=== PATIENT | female | born 1955 | race African-American/Black ===

== ENCOUNTER 2017-02-19 15:52 | Emergency (ER) | payer MEDICAID ==
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
[2017-02-19 16:58] VITALS: BP 156/88
== END 2017-02-19 16:45 | disposition home or self-care (01) ==
LOC: ER 15:52
DX: J06.9 Acute upper respiratory infection, unspecified (principal); R05 Cough; Z87.891 Personal history of nicotine dependence
CPT/HCPCS: 99283

== ENCOUNTER 2017-03-23 17:25 | Emergency (ER) | payer MEDICAID ==
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
[2017-03-23] MEDS ORDERED: HYDROCODONE/ACETAMINOPHEN 5-325 MG 6 TAB/DSPK PO PRN (19:43)
[2017-03-23 20:20] VITALS: BP 148/84
== END 2017-03-23 20:18 | disposition home or self-care (01) ==
LOC: ER 17:25
DX: S89.92XA Unspecified injury of left lower leg, initial encounter (principal); M25.562 Pain in left knee; M79.89 Other specified soft tissue disorders; G89.29 Other chronic pain; W19.XXXA Unspecified fall, initial encounter; Z87.891 Personal history of nicotine dependence
CPT/HCPCS: 99283

== ENCOUNTER 2017-05-01 09:57 | Emergency (ER) | payer MEDICAID ==
[2017-05-01 10:13] VITALS: BP 107/66
--- NOTE | 2017-05-01 12:00 | RADIOLOGY REPORT (SQ) ---
EXAM DESCRIPTION: FOOT LEFT COMPLETE COMPLETED DATE/TIME: 05/01/2017 11:49 am REASON FOR STUDY: pain and swelling COMPARISON: None. NUMBER OF VIEWS: Three views. TECHNIQUE: AP, lateral and oblique radiographic images acquired of the left foot. LIMITATIONS: None. FINDINGS: MINERALIZATION: Osteopenia. BONES: No acute fracture or dislocation. No worrisome bone lesions. JOINTS: No effusions. SOFT TISSUES: No soft tissue swelling. No foreign body. OTHER: No other significant finding. IMPRESSION: NEGATIVE STUDY OF THE LEFT FOOT. NO RADIOGRAPHIC EVIDENCE OF ACUTE INJURY. TECHNICAL DOCUMENTATION: JOB ID: [id number] [email or web address]- All Rights Reserved
--- NOTE | 2017-05-01 12:01 | RADIOLOGY REPORT (SQ) ---
EXAM DESCRIPTION: ANKLE LEFT COMPLETE COMPLETED DATE/TIME: 05/01/2017 11:49 am REASON FOR STUDY: pain and swelling COMPARISON: None. NUMBER OF VIEWS: Three views. TECHNIQUE: AP, lateral, and oblique radiographic images acquired of the left ankle. LIMITATIONS: None. FINDINGS: MINERALIZATION: Osteopenia. BONES: No acute fracture or dislocation. No worrisome bone lesions. JOINTS: No effusions. SOFT TISSUES: No soft tissue swelling. No foreign body. OTHER: No other significant finding. IMPRESSION: NEGATIVE STUDY OF THE LEFT ANKLE. NO RADIOGRAPHIC EVIDENCE OF ACUTE INJURY. TECHNICAL DOCUMENTATION: JOB ID: [id number] [employer]- All Rights Reserved
[2017-05-01] MEDS ORDERED: IBUPROFEN 600 MG TABLET PO ONE (12:05)
--- NOTE | 2017-05-01 12:09 | ER Document Report ---
HPI - HPI Patient complains to provider of: left foot and ankle pain Onset: Other - Monday Onset/Duration: Gradual Quality of pain: Achy Severity: Severe Pain Level: 5 Associated Symptoms: Other - painful ambulation Exacerbated by: Movement, Walking Relieved by: Denies Similar symptoms previously: Yes Recently seen / treated by doctor: No - ROS ROS below otherwise negative: Yes - CONSTITUTIONAL Constitutional: DENIES: Fever, Chills - EENT EENT: DENIES: Sore Throat, Ear Pain, Nasal Drainage-Clear, Nasal Drainage- Purulent, Congestion, Eye problems - NEURO Neurology: DENIES: Headache, Weakness, Vision blurred, Dizzinesss / Vertigo - CARDIOVASCULAR Cardiovascular: DENIES: Chest pain - RESPIRATORY Respiratory: DENIES: Trouble Breathing, Coughing - GASTROINTESTINAL Gastrointestinal: DENIES: Abdominal Pain, Nausea, Patient vomiting, Diarrhea, Constipation, Black / Bloody Stools - URINARY Urinary: DENIES: Dysuria, Urgency, Frequency - REPRODUCTIVE Reproductive: DENIES: :, Postmenopausal, Abnormal bleeding / discharge - MUSCULOSKELETAL Musculoskeletal: REPORTS: Extremity pain, Swelling - DERM Skin Color: Normal Skin Problems: None Past Medical History - General Information source: Patient - Social History Smoking Status: Never Smoker Cigarette use (# per day): No Chew tobacco use (# tins/day): No Smoking Education Provided: No Frequency of alcohol use: None Drug Abuse: None Lives with: Family Family History: Arthritis, CAD, CVA, DM, Hyperlipidemia, Hypertension, Malignancy Patient has suicidal ideation: No Patient has homicidal ideation: No - Past Medical History Cardiac Medical History: Reports: Hx Atrial Fibrillation, Hx Hypercholesterolemia, Hx Hypertension Pulmonary Medical History: Reports: Hx Asthma EENT Medical History: Reports: None Neurological Medical History: Reports: None Endocrine Medical History: Reports: None Renal/ Medical History: Reports: None Malignancy Medical History: Reports: None GI Medical History: Reports: None Musculoskeltal Medical History: Reports Hx Arthritis, Reports Hx Musculoskeletal Deformity, Reports Hx Musculoskeletal Trauma Skin Medical History: Reports None Psychiatric Medical History: Reports: Hx Anxiety Traumatic Medical History: Reports: Hx Fractures, Hx Traumatic Brain Injury Infectious Medical History: Reports: None Past Surgical History: Reports: Hx Oral Surgery, Hx Orthopedic Surgery - left knee, Hx Tubal Ligation - Immunizations Hx Diphtheria, Pertussis, Tetanus Vaccination: Yes Vertical Provider Document - CONSTITUTIONAL Agree With Documented VS: Yes Exam Limitations: No Limitations General Appearance: WD/WN, No Apparent Distress - INFECTION CONTROL TRAVEL OUTSIDE OF THE [place] IN LAST 30 DAYS: No - HEENT HEENT: Atraumatic, Normal ENT Exam, Normocephalic, PERRLA - NECK Neck: Normal Inspection, Supple - RESPIRATORY Respiratory: Breath Sounds Normal, No Respiratory Distress, Chest Non-Tender O2 Sat by Pulse Oximetry: 98 - CARDIOVASCULAR Cardiovascular: Regular Rate, Regular Rhythm - MUSCULOSKELETAL/EXTREMETIES Musculoskeletal/Extremeties: Tender - left ankle and foot, Edema - left ankle and foot - NEURO Level of Consciousness: Awake, Alert, Appropriate Course - Re-evaluation Re-evalutation: 05/01/17 12:13 Discussed x-rays with patient written report given to patient at discharge the patient instructed to follow-up with orthopedics. Ibuprofen given for discomfort. - Vital Signs Vital signs: Temp Pulse Resp BP Pulse Ox 98.1 F 76 18 107/66 98 05/01/17 10:12 05/01/17 10:12 05/01/17 10:12 05/01/17 10:12 05/01/17 10:12 - Diagnostic Test Radiology reviewed: Image reviewed, Reports reviewed Discharge - Discharge Clinical Impression: Pain in left ankle and joints of left foot Qualifiers: Chronicity: acute Qualified Code(s): M25.572 - Pain in left ankle and joints of left foot Instructions: Ankle Exercise Program ([facility]), Exercises for the Foot Muscles ([facility] ), Family Physicians / Practices Additional Instructions: You were seen today for pain in your left foot and ankle. Your x-ray are negative for any acute injury. You will need to follow-up with orthopedics and your primary doctor. I will give you ibuprofen at this time for your pain and you can get ibuprofen [id number] for your pain. ALEXIS WRAP: A compression dressing (alexis wrap) has been placed. This helps hold the area still. It limits swelling and internal bleeding. The wrap should be comfortably snug -- not tight. You should feel a sense of pressure, but not severe pain under the wrap. Unless the physician tells you otherwise, you can adjust the wrap for comfort. If the wrap causes symptoms suggesting it's too tight -- uncomfortable pressure, swelling or discoloration beyond the wrap, numbness, or severe pain - - you must loosen the wrap. If these symptoms don't resolve promptly, return for re-evaluation. USE OF CRUTCHES: The doctor has recommended that you not bear weight at this time. You will need to use crutches. Adjust the crutches so the tops come to about two inches under the armpit while you are standing upright. Use your hands -- not your armpits -- to support your weight. To get into a chair, support yourself with one crutch on the injured side. Hold the chair with the other hand, then lower yourself while putting all your weight on the good leg. Going up stairs is `good leg up, step up, then bring up crutches and bad leg.' Down stairs is `bad leg and crutches down, then bring good leg down.' If you develop numbness or swelling in an arm or hand, you are using the crutches incorrectly. Return if you are having any problems with the crutches. ICE & ELEVATION: Apply ice packs frequently against the painful area. Many different schedules are recommended, such as "20 minutes on, 20 minutes off" or "one hour ice, two hours rest." If you need to work, you may need to go longer between ice treatments. You should plan to have the area ice packed AT LEAST one- fourth of the time. The ice should be applied over the wrap, tape, or splint, or over a layer of cloth -- not directly against the skin. Some ice bags have a built-in cloth and can be put directly on the skin. Your injured part should be elevated as much as possible over the next 48 hours. Try to keep the injury above the level of the heart. Avoid use of the injured area. Elevation and rest will decrease the swelling. USE OF [id number] IBUPROFEN: Ibuprofen (Advil, Nuprin, Medipren, Motrin IB) is a medication for fever and pain control. In addition, it has anti- inflammatory effects which may be beneficial, especially in the treatment of injuries. It's best to take ibuprofen with food. Persons with ulcer disease or allergy to aspirin should notify their physician of this before taking ibuprofen. Ibuprofen can be given every four to six hours, for a total of four doses daily. Age Pain or fever dose Antiinflammatory dose 6-8 yr 200 mg (1 tab) 200 mg (1 tab) 9-11 yr 200 mg (1 tab) 200-400 mg (1-2 tab) 11-14 yr 200-400 mg (1-2 tab) 400 mg (2 tab) 15-adult 400 mg (2 tab) 600 mg (3 tab) FOLLOW-UP CARE: If you have been referred to a physician for follow-up care, call the physician s office for an appointment as you were instructed or within the next two days. If you experience worsening or a significant change in your symptoms, notify the physician immediately or return to the Emergency Department at any time for re-evaluation. Referrals: DADA IRENE, [ACTIVE STAFF] - Follow up as needed
== END 2017-05-01 12:30 | disposition home or self-care (01) ==
LOC: ER 09:57
DX: M25.572 Pain in left ankle and joints of left foot (principal); R60.0 Localized edema; I10 Essential (primary) hypertension; J45.909 Unspecified asthma, uncomplicated
CPT/HCPCS: 99283; 73610; 73630; J3490

== ENCOUNTER 2017-05-16 07:56 | Emergency (ER) | payer MEDICAID ==
--- NOTE | 2017-05-16 09:01 | ER Document Report ---
ED Extremity Problem, Lower - General Mode of Arrival: Ambulatory Information source: Patient TRAVEL OUTSIDE OF THE [place] IN LAST 30 DAYS: No - HPI Patient complains to provider of: Pain Location: Great Toe - right Occurred: Just prior to arrival Quality of pain: No pain Severity: None Recent injury: Possibly Exacerbated by: Walking - General Chief Complaint: Foot Pain Stated Complaint: RIGHT FOOT INJURY Time Seen by Provider: 05/16/17 08:11 Notes: Patient is a 61-year-old female who presents to the emergency department today with complaints of right great toe pain. Patient states she banged her toe on the lip of a stair. Patient denies any other injuries. (MIGUEL MCDANIEL) - Related Data Allergies/Adverse Reactions: No Known Allergies Allergy (Verified 05/16/17 07:58) Past Medical History - General Information source: Patient - Social History Smoking Status: Former Smoker Chew tobacco use (# tins/day): No Frequency of alcohol use: None Drug Abuse: None Family History: Arthritis, CAD, CVA, DM, Hyperlipidemia, Hypertension, Malignancy Patient has suicidal ideation: No Patient has homicidal ideation: No - Past Medical History Cardiac Medical History: Reports: Hx Atrial Fibrillation, Hx Hypercholesterolemia, Hx Hypertension Pulmonary Medical History: Reports: Hx Asthma Musculoskeltal Medical History: Reports Hx Arthritis, Reports Hx Musculoskeletal Deformity, Reports Hx Musculoskeletal Trauma Psychiatric Medical History: Reports: Hx Anxiety Traumatic Medical History: Reports: Hx Fractures, Hx Traumatic Brain Injury Past Surgical History: Reports: Hx Oral Surgery, Hx Orthopedic Surgery - left knee, Hx Tubal Ligation - Immunizations Hx Diphtheria, Pertussis, Tetanus Vaccination: Yes Review of Systems - Review of Systems Constitutional: No symptoms reported EENT: No symptoms reported Cardiovascular: No symptoms reported Respiratory: No symptoms reported Gastrointestinal: No symptoms reported Genitourinary: No symptoms reported Female Genitourinary: No symptoms reported Musculoskeletal: See HPI, Joint pain - right great toe pain Skin: No symptoms reported Hematologic/Lymphatic: No symptoms reported Neurological/Psychological: No symptoms reported -: Yes All other systems reviewed and negative Physical Exam - Notes Notes: Physical Exam: General: Alert, appears well. HEENT: Normocephalic. Atraumatic. PERRLA. Extraocular movements intact. Oropharynx clear. Neck: Supple. Respiratory: No respiratory distress. Abdominal: Normal Inspection. No distension. Extremities: Moves all four extremities. Neurological: Normal cognition. AAOx4. Normal speech. Psychological: Normal affect. Normal Mood. Skin: Callous to tops and bottom of feet bilaterally. Valgus deformity to right great toe approximately 45. Tenderness with palpation at the base of the 1st mtp, not red/hot. (MIGUEL MCDANIEL) Course - Re-evaluation Re-evalutation: 05/16/17 10:23 Patient presents emergency department states she bumped her right foot on a dresser. She has an obvious valgus deformity as she did her other toe which is been fixed by a golf course keeper. She also has several calluses which are not secondarily infected her pain is at the MTP joint on the right is not red hot or swollen good range of motion pulses sensation and perfusion. X-rays negative for acute fracture. Diagnosis contusion given postop shoe follow primary care physician golf course keeper and discussed reasons for ED return sooner ( KATIE SARABIA) Discharge - Discharge Clinical Impression: acute contusion right great toe Condition: Stable Disposition: HOME, SELF-CARE Additional Instructions: Contusion Your injury has resulted in a contusion -- a crushing of the deep tissues. No injury to important structures was detected during the physician's exam. Contusions vary in the amount of pain they cause, and in the length of time required for healing. Typically, the area will become bruised, and will remain painful to touch for two or three weeks. However, most patients are back to working and playing within a few days. After the initial period of rest and cold-packs, your symptoms (together with the doctor's recommendations) will determine how rapidly you can get back to full activity. Usually this means "do what feels okay, but don't do things that hurt." If re-examination was recommended, it's important to follow up as instructed. Call the doctor or return any time if pain increases, if swelling becomes severe, if you develop numbness or weakness in an injured extremity, or if any other alarming symptoms occur. Follow-up with your primary care physician or golf course keeper in 3-5 days return for increasing worsening or new symptoms Scribe Attestation: 05/16/17 10:22 I personally performed the services described in the documentation, reviewed and edited the documentation which was dictated to my scribe in my presence, and it accurately records my words and actions. (KATIE SARABIA) Scribe Documentation - Scribe Written by Kamran:: Kamran Hope, 05/16/2017 1350 acting as scribe for :: Shawn
--- NOTE | 2017-05-16 09:34 | RADIOLOGY REPORT (SQ) ---
EXAM DESCRIPTION: FOOT RIGHT COMPLETE COMPLETED DATE/TIME: 05/16/2017 9:20 am REASON FOR STUDY: injury pain COMPARISON: None. NUMBER OF VIEWS: Three views. TECHNIQUE: AP, lateral and oblique radiographic images acquired of the right foot. LIMITATIONS: None. FINDINGS: MINERALIZATION: Normal. BONES: No acute fracture or dislocation. No worrisome bone lesions. 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 SOFT TISSUES: No soft tissue swelling. No foreign body. OTHER: No other significant finding. IMPRESSION: No acute fracture TECHNICAL DOCUMENTATION: JOB ID: [id number] [employer]- All Rights Reserved
== END 2017-05-16 10:30 | disposition home or self-care (01) ==
LOC: ER 07:56
DX: S90.111A Contusion of right great toe without damage to nail, initial encounter (principal); W22.09XA Striking against other stationary object, initial encounter; Z87.891 Personal history of nicotine dependence; I48.91 Unspecified atrial fibrillation; E78.00 Pure hypercholesterolemia, unspecified; I10 Essential (primary) hypertension; Z87.820 Personal history of traumatic brain injury; Z98.51 Tubal ligation status
CPT/HCPCS: 99283

== ENCOUNTER → 2017-06-08 | Outpatient (CLI) | payer MEDICAID ==
--- NOTE | 2017-06-09 17:04 | XCELERA REPORT ---
[address] [address] Lower Extremity Arterial Evaluation Name: ABEL BAPTISTE Age: 61 yrs Gender: Female : 1955 Patient Status: Outpatient Patient Location: Study Date: 06/08/2017 02:56 PM Procedure: A color flow and duplex scan of the lower extremity arteries was performed bilaterally with velocity and waveform anaylsis. Ankle brachial indicies performed. 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 0 % stenosis noted. Ankle Brachial index is 1.04. PPG's are quite normal. Left Side Arterial Evaluation Normal velocity and triphasic waveforms noted from the Common Femoral artery to the infrageniculate vessels. 0 % stenosis noted. Ankle Brachial index is 1.06. PPG's are quite normal. Interpretation Summary No hemodynamically significant lesions in the bilateral lower extremities, on duplex imaging, at rest. : MARIIA JAMESON > Ganga Berg
== END ==
LOC: SP 06-01 15:52
PROVIDERS: ATTEND Podiatrist Foot & Ankle Surgery
DX: I73.9 Peripheral vascular disease, unspecified (principal)
CPT/HCPCS: 93925

== ENCOUNTER 2017-07-22 12:07 | Emergency (ER) | payer MEDICAID ==
[2017-07-22 12:16] VITALS: BP 145/61
--- NOTE | 2017-07-22 12:56 | ER Document Report ---
HPI - HPI Patient complains to provider of: medication refill Onset: Other Onset/Duration: Gone Quality of pain: No pain Severity: None Pain Level: Denies Context: 61-year-old female presents to ED for refill on her blood pressure medications. She states she has not been able to get up with her primary doctor for over a month. Patient states she needs a refill on her lisinopril. Associated Symptoms: None Exacerbated by: Denies Relieved by: Denies Similar symptoms previously: Yes Recently seen / treated by doctor: No - ROS ROS below otherwise negative: Yes - CONSTITUTIONAL Constitutional: DENIES: Fever, Chills - EENT EENT: DENIES: Sore Throat, Ear Pain, Nasal Drainage-Clear, Nasal Drainage- Purulent, Congestion, Eye problems - NEURO Neurology: DENIES: Headache, Weakness, Vision blurred, Dizzinesss / Vertigo - CARDIOVASCULAR Cardiovascular: DENIES: Chest pain - RESPIRATORY Respiratory: DENIES: Trouble Breathing, Coughing - GASTROINTESTINAL Gastrointestinal: DENIES: Abdominal Pain, Nausea, Patient vomiting, Diarrhea, Constipation, Black / Bloody Stools - URINARY Urinary: DENIES: Dysuria, Urgency, Frequency - REPRODUCTIVE Reproductive: DENIES: :, Postmenopausal, Abnormal bleeding / discharge - MUSCULOSKELETAL Musculoskeletal: DENIES: Extremity pain, Back Pain, Neck Pain, Swelling - DERM Skin Color: Normal Skin Problems: None Past Medical History - General Information source: Patient - Social History Smoking Status: Former Smoker Cigarette use (# per day): No Chew tobacco use (# tins/day): No Smoking Education Provided: No Frequency of alcohol use: None Drug Abuse: None Lives with: Family Family History: Arthritis, CAD, CVA, DM, Hyperlipidemia, Hypertension, Malignancy Patient has suicidal ideation: No Patient has homicidal ideation: No - Past Medical History Cardiac Medical History: Reports: Hx Atrial Fibrillation, Hx Hypercholesterolemia, Hx Hypertension Pulmonary Medical History: Reports: Hx Asthma EENT Medical History: Reports: None Neurological Medical History: Reports: None Endocrine Medical History: Reports: None Renal/ Medical History: Reports: None Malignancy Medical History: Reports: None GI Medical History: Reports: None Musculoskeltal Medical History: Reports Hx Arthritis, Reports Hx Musculoskeletal Deformity, Reports Hx Musculoskeletal Trauma Skin Medical History: Reports None Psychiatric Medical History: Reports: Hx Anxiety Traumatic Medical History: Reports: Hx Fractures, Hx Traumatic Brain Injury Infectious Medical History: Reports: None Past Surgical History: Reports: Hx Oral Surgery, Hx Orthopedic Surgery - left knee, Hx Tubal Ligation - Immunizations Hx Diphtheria, Pertussis, Tetanus Vaccination: Yes Vertical Provider Document - CONSTITUTIONAL Agree With Documented VS: Yes Exam Limitations: No Limitations General Appearance: WD/WN, No Apparent Distress - INFECTION CONTROL TRAVEL OUTSIDE OF THE [place] IN LAST 30 DAYS: No - HEENT HEENT: Atraumatic, Normal ENT Exam, Normocephalic, PERRLA - NECK Neck: Normal Inspection, Supple - RESPIRATORY Respiratory: Breath Sounds Normal, No Respiratory Distress O2 Sat by Pulse Oximetry: 98 - CARDIOVASCULAR Cardiovascular: Regular Rate, Regular Rhythm - GI/ABDOMEN Gastrointestinal: Abdomen Soft, No Organomegaly, Normal Bowel Sounds - MUSCULOSKELETAL/EXTREMETIES Musculoskeletal/Extremeties: MAEW, FROM, Non-Tender - NEURO Level of Consciousness: Awake, Alert, Appropriate - DERM Integumentary: Warm, Dry, No Rash Course - Vital Signs Vital signs: Temp Pulse Resp BP Pulse Ox 98.7 F 80 19 145/61 H 98 07/22/17 12:14 07/22/17 12:14 07/22/17 12:14 07/22/17 12:14 07/22/17 12:14 Discharge - Discharge Clinical Impression: Medication refill Condition: Stable Disposition: HOME, SELF-CARE Additional Instructions: You were seen today for medication refill for your blood pressure medicine. You are not able to contact your primary care doctor within the next month please as you stated get you a new primary care doctor. ALEXIS Inhibitor Medication "ALEXIS inhibitor" drugs are used to lower high blood pressure (or to reduce the "work" of the heart in patients with heart failure). These drugs block an enzyme that makes your blood vessels constrict and makes you retain salt. The result is lower blood pressure. ALEXIS inhibitors cause few side effects. The most common side effect is a dry nagging cough. Occasionally, lightheadedness may occur while you get used to the medicine. Some patients may retain extra potassium (this is a problem if you are taking potassium supplements, potassium-containing salt substitutes, or a potassium-retaining drug such as triamterene, spironolactone, or amiloride). If you are taking lithium, the lithium level must be rechecked after starting an ALEXIS inhibitor. ALEXIS inhibitors should NOT be used during . Contact the doctor or return if you develop severe lightheadedness, wheeze, weakness, palpitations or other new symptoms. FOLLOW-UP CARE: If you have been referred to a physician for follow-up care, call the physician s office for an appointment as you were instructed or within the next two days. If you experience worsening or a significant change in your symptoms, notify the physician immediately or return to the Emergency Department at any time for re-evaluation. Prescriptions: Lisinopril/Hydrochlorothiazide [Lisinopril-Hctz 20-25 mg Tab] 1 each PO DAILY # 30 tablet Referrals: ESTRELLITA KRAUS I, DO [Primary Care Provider] - Follow up as needed
== END 2017-07-22 13:13 | disposition home or self-care (01) ==
LOC: ER 12:07
DX: Z76.0 Encounter for issue of repeat prescription (principal); I10 Essential (primary) hypertension; Z87.891 Personal history of nicotine dependence
CPT/HCPCS: 99281

== ENCOUNTER → 2018-02-05 | Outpatient (CLI) | payer MEDICAID ==
--- NOTE | 2018-02-05 15:27 | RADIOLOGY REPORT (SQ) ---
EXAM DESCRIPTION: HAND RIGHT 3 VIEWS COMPLETED DATE/TIME: 02/05/2018 11:42 am REASON FOR STUDY: PAIN IN UNSPECIFIED LIMB M79.609 PAIN IN UNSPECIFIED LIMB COMPARISON: November 2015 EXAM PARAMETERS: NUMBER OF VIEWS: Three views. TECHNIQUE: AP, lateral and oblique radiographic images acquired of the right hand. LIMITATIONS: None. FINDINGS: MINERALIZATION: Normal. BONES: No acute fracture or dislocation. No worrisome bone lesions. JOINTS: No effusions. SOFT TISSUES: No soft tissue swelling. No foreign body. OTHER: No other significant finding. IMPRESSION: NEGATIVE STUDY OF THE RIGHT HAND. NO RADIOGRAPHIC EVIDENCE OF ACUTE INJURY. TECHNICAL DOCUMENTATION: JOB ID: [id number] [employer]- All Rights Reserved Reading location - IP/workstation name: [email or web address]
== END ==
LOC: OD 11:17
PROVIDERS: ATTEND Family Medicine
DX: M79.641 Pain in right hand (principal)

== ENCOUNTER 2018-02-20 07:45 | Emergency (ER) | payer MEDICAID ==
--- NOTE | 2018-02-20 08:08 | ER Document Report ---
ED General - General Chief Complaint: Finger Injury Stated Complaint: POSSIBLE SPLINTER IN FINGER Time Seen by Provider: 02/20/18 08:01 Mode of Arrival: Ambulatory Information source: Patient Notes: 62-year-old nondiabetic female presents with complaints of right hand third digit pain 2 weeks after a splinter was removed from the finger. Patient notes that it has been hurting worse recently. Denies any fevers or chills notes swelling to the finger TRAVEL OUTSIDE OF THE [place] IN LAST 30 DAYS: No - HPI Onset: Other Onset/Duration: Persistent, Worse Quality of pain: Sharp Severity: Mild Pain Level: 1 Associated symptoms: Other Exacerbated by: Movement Relieved by: Denies Similar symptoms previously: Yes Recently seen / treated by doctor: Yes - Related Data Allergies/Adverse Reactions: No Known Allergies Allergy (Verified 02/20/18 07:46) Past Medical History - Social History Smoking Status: Never Smoker Cigarette use (# per day): No Chew tobacco use (# tins/day): No Smoking Education Provided: No Family History: Arthritis, CAD, CVA, DM, Hyperlipidemia, Hypertension, Malignancy - Past Medical History Cardiac Medical History: Reports: Hx Atrial Fibrillation, Hx Hypercholesterolemia, Hx Hypertension Pulmonary Medical History: Reports: Hx Asthma Renal/ Medical History: Denies: Hx Peritoneal Dialysis Musculoskeltal Medical History: Reports Hx Arthritis, Reports Hx Musculoskeletal Deformity, Reports Hx Musculoskeletal Trauma Psychiatric Medical History: Reports: Hx Anxiety Traumatic Medical History: Reports: Hx Fractures, Hx Traumatic Brain Injury Past Surgical History: Reports: Hx Oral Surgery, Hx Orthopedic Surgery - left knee, Hx Tubal Ligation - Immunizations Hx Diphtheria, Pertussis, Tetanus Vaccination: Yes Review of Systems - Review of Systems Notes: REVIEW OF SYSTEMS: CONSTITUTIONAL : Denies fever, chills, or sweats. Denies recent illness. EENT: Denies eye, ear, throat, or mouth pain or symptoms. Denies nasal or sinus congestion or discharge. Denies throat, tongue, or mouth swelling or difficulty swallowing. CARDIOVASCULAR: Denies chest pain. Denies palpitations or racing or irregular heart beat. Denies ankle edema. RESPIRATORY: Denies cough, cold, or chest congestion. Denies shortness of breath, difficulty breathing, or wheezing. GASTROINTESTINAL: Denies abdominal pain or distention. Denies nausea, vomiting , or diarrhea. Denies blood in vomitus, stools, or per rectum. Denies black, tarry stools. Denies constipation. GENITOURINARY: Denies difficulty urinating, painful urination, burning, frequency, blood in urine, or discharge. FEMALE GENITOURINARY: Denies vaginal bleeding, heavy or abnormal periods, irregular periods. Denies vaginal discharge or odor. MUSCULOSKELETAL: Denies back or neck pain or stiffness. Denies joint pain or swelling. SKIN: Admits to right hand third digit pain. HEMATOLOGIC : Denies easy bruising or bleeding. LYMPHATIC: Denies swollen, enlarged glands. NEUROLOGICAL: Denies confusion or altered mental status. Denies passing out or loss of consciousness. Denies dizziness or lightheadedness. Denies headache. Denies weakness or paralysis or loss of use of either side. Denies problems with gait or speech. Denies sensory loss, numbness, or tingling. Denies seizures. PSYCHIATRIC: Denies anxiety or stress. Denies depression, suicidal ideation, or homicidal ideation. ALL OTHER SYSTEMS REVIEWED AND NEGATIVE. PHYSICAL EXAMINATION: GENERAL: Well-appearing, well-nourished and in no acute distress. HEAD: Atraumatic, normocephalic. EYES: Pupils equal round extraocular movements intact, conjunctiva are normal. ENT: Nares patent NECK: Normal range of motion LUNGS: No respiratory distress Musculoskeletal: Normal range of motion no pain with flexion or extension of the digit, pain is associated with the distal phalanx of the third digit, there is discoloration of the finger nail concerning with infectious process NEUROLOGICAL: Normal speech, normal gait. PSYCH: Normal mood, normal affect. SKIN: Warm, Dry, normal turgor, no rashes or lesions noted. Dictation was performed using [employer] voice recognition software Physical Exam - Vital signs Vitals: Temp Pulse Resp BP Pulse Ox 98.4 F 65 18 180/79 H 98 02/20/18 07:49 02/20/18 07:49 02/20/18 07:49 02/20/18 07:49 02/20/18 07:49 Course - Re-evaluation Re-evalutation: 02/20/18 08:22 Initial concern was for flexor tenosynovitis however patient does not meet criteria for this, it appears she has a paronychia secondary from the splinter, a digital nerve block will be performed, after this we will incise and drain the paronychia start the patient on antibiotics 02/20/18 09:26 Incision was made pus was drained from the lateral aspect of the third digit, patient will be placed on antibiotics and be given very strict return precautions After performing a Medical Screening Examination, I estimate there is LOW risk for OPEN FRACTURE, COMPARTMENT SYNDROME, TENDON RUPTURE, ACUTE NEUROVASCULAR INJURY, or RETAINED FOREIGN BODY, thus I consider the discharge disposition reasonable. Also, there is no evidence or peritonitis, sepsis, or toxicity. I have reevaluated this patient multiple times and no significant life threatening changes are noted. The patient and I have discussed the diagnosis and risks, and we agree with discharging home with close follow-up with the understanding that symptoms and presentations can change. We also discussed returning to the Emergency Department immediately if new or worsening symptoms occur. We have discussed the symptoms which are most concerning (e.g., changing or worsening pain, fever, numbness, weakness, cool or painful digits) that necessitate immediate return. - Vital Signs Vital signs: Temp Pulse Resp BP Pulse Ox 98.4 F 65 18 180/79 H 98 02/20/18 07:49 02/20/18 07:49 02/20/18 07:49 02/20/18 07:49 02/20/18 07:49 - Diagnostic Test Radiology reviewed: Image reviewed - no acute anbormality, Reports reviewed Procedures - Incision and Drainage Right 3rd digit Time completed: 09:20 Type: Simple Anesthetic type: 1% Lidocaine mL's of anesthetic: 5 Blade size: 11 I&D procedure: Shurclens applied, Sterile dressing applied Incision Method: Incision made by scalpel Amount/type of drainage: small amount of pus - Additional Procedures digital nerve block Time performed: 08:30 - using 5 cc of 1% lido without epi complete releif no complication at base of the 3rd digit Discharge - Discharge Clinical Impression: Paronychia HTN (hypertension) Qualifiers: Hypertension type: essential hypertension Qualified Code(s): I10 - Essential ( primary) hypertension Condition: Stable Disposition: HOME, SELF-CARE Instructions: Paronychia ([facility]) Prescriptions: Cephalexin Monohydrate [Keflex 500 mg Capsule] 500 mg PO Q6H 10 Days capsule Hydrocodone/Acetaminophen [Hiram 5-325 mg Tablet] 1 tab PO Q6 #10 tablet Sulfamethoxazole/Trimethoprim [Bactrim Ds Tablet] 2 each PO BID #40 tablet Referrals: DADA IRENE DO [ACTIVE STAFF] - 02/22/18
[2018-02-20] MEDS ORDERED: LIDOCAINE 1% INJ-PF (10 MG/ML) 30 ML SDV INJ ONE (08:14)
--- NOTE | 2018-02-20 08:41 | RADIOLOGY REPORT (SQ) ---
EXAM DESCRIPTION: HAND RIGHT 3 VIEWS COMPLETED DATE/TIME: 02/20/2018 8:13 am REASON FOR STUDY: left finger pain, ?foreign body COMPARISON: 02/05/2018, 12/16/2015 right hand three views EXAM PARAMETERS: NUMBER OF VIEWS: Three views. TECHNIQUE: AP, lateral and oblique radiographic images acquired of the right hand. LIMITATIONS: None. FINDINGS: MINERALIZATION: Normal. BONES: No acute fracture or dislocation. No worrisome bone lesions. JOINTS: No effusions. SOFT TISSUES: No soft tissue swelling. No foreign body. OTHER: No other significant finding. IMPRESSION: NEGATIVE STUDY OF THE RIGHT HAND. NO RADIOGRAPHIC EVIDENCE OF ACUTE INJURY. No third finger radiopaque foreign body or distal phalanx fracture. TECHNICAL DOCUMENTATION: JOB ID: [id number] [employer]- All Rights Reserved Reading location - IP/workstation name: [email or web address]
[2018-02-20 09:52] VITALS: BP 178/85
== END 2018-02-20 09:52 | disposition home or self-care (01) ==
LOC: ER 07:45
PROC: 0H9FXZZ Drainage of Right Hand Skin, External Approach (ICD-10-PCS; principal; 2018-02-20)
DX: L03.011 Cellulitis of right finger (principal); I10 Essential (primary) hypertension; J45.909 Unspecified asthma, uncomplicated
CPT/HCPCS: 99283

== ENCOUNTER 2018-03-03 17:56 | Emergency (ER) | payer MEDICAID ==
[2018-03-03] MEDS ORDERED: LISINOPRIL 10 MG TABLET PO ONE (19:19)
--- NOTE | 2018-03-03 19:20 | ER Document Report ---
ED Medical Screen (RME) - General Chief Complaint: Headache Stated Complaint: BLOOD PRESSURE ISSUES Time Seen by Provider: 03/03/18 19:12 Notes: This 62-year-old female patient comes emergency room complaining of onset this morning with headache, nausea, pain in the back of her neck and shoulders. She has not taken her blood pressure medication a couple of days by her history due to running out. She was seen here earlier this month for infection of her finger, and her blood pressure was quite high at that time when she was allegedly taking her medicine. I have greeted and performed a rapid initial assessment of this patient. A comprehensive ED assessment and evaluation of the patient, analysis of test results and completion of the medical decision making process will be conducted by additional ED providers. TRAVEL OUTSIDE OF THE [place] IN LAST 30 DAYS: No - Related Data Allergies/Adverse Reactions: No Known Allergies Allergy (Verified 02/20/18 07:46) Past Medical History - Social History Chew tobacco use (# tins/day): No Frequency of alcohol use: None Drug Abuse: None - Past Medical History Cardiac Medical History: Reports: Hx Atrial Fibrillation, Hx Hypercholesterolemia, Hx Hypertension Pulmonary Medical History: Reports: Hx Asthma Renal/ Medical History: Denies: Hx Peritoneal Dialysis Musculoskeltal Medical History: Reports Hx Arthritis, Reports Hx Musculoskeletal Deformity, Reports Hx Musculoskeletal Trauma Psychiatric Medical History: Reports: Hx Anxiety Traumatic Medical History: Reports: Hx Fractures, Hx Traumatic Brain Injury Past Surgical History: Reports: Hx Oral Surgery, Hx Orthopedic Surgery - left knee, Hx Tubal Ligation - Immunizations Hx Diphtheria, Pertussis, Tetanus Vaccination: Yes Physical Exam - Vital signs Vitals: Temp Pulse Resp BP Pulse Ox 97.9 F 98 16 177/75 H 95 03/03/18 18:01 03/03/18 18:01 03/03/18 18:01 03/03/18 18:01 03/03/18 18:01 Course - Vital Signs Vital signs: Temp Pulse Resp BP Pulse Ox 97.9 F 98 16 177/75 H 95 03/03/18 18:01 03/03/18 18:01 03/03/18 18:01 03/03/18 18:01 03/03/18 18:01
[2018-03-03] MEDS ORDERED: CYCLOBENZAPRINE HCL 10 MG TABLET PO ONE (20:07)
--- NOTE | 2018-03-03 20:11 | ER Document Report ---
HPI - HPI Onset: This afternoon Onset/Duration: Better, Gone Quality of pain: No pain Pain Level: Denies Context: Patient presents stating that she had a headache this afternoon. Patient was given blood pressure medication in triage and she states currently her headache is resolved. Patient also reported upper back and neck pain that is resolved now as well. Patient states that she has been taking antibiotics for a finger infection and states that she took the medication without any food on her stomach and suspects that she had vomiting at home due to this. Patient presently denies any nausea or vomiting. Patient denies any chest pain, abdominal pain or back pain. Patient ran out of her blood pressure medications 1 week ago. Patient denies any fever. Associated Symptoms: Headache - Now resolved, Vomiting. denies: Chest pain, Nonproductive cough, Shortness of breath Exacerbated by: Denies Relieved by: Denies Similar symptoms previously: Yes Recently seen / treated by doctor: No - ROS ROS below otherwise negative: Yes Systems Reviewed and Negative: Yes All other systems reviewed and negative - CONSTITUTIONAL Constitutional: DENIES: Fever, Chills - EENT EENT: DENIES: Sore Throat - NEURO Neurology: REPORTS: Headache. DENIES: Dizzinesss / Vertigo - CARDIOVASCULAR Cardiovascular: DENIES: Chest pain - RESPIRATORY Respiratory: DENIES: Trouble Breathing, Coughing - GASTROINTESTINAL Gastrointestinal: REPORTS: Patient vomiting. DENIES: Abdominal Pain, Diarrhea - REPRODUCTIVE Reproductive: DENIES: : - MUSCULOSKELETAL Musculoskeletal: REPORTS: Back Pain. DENIES: Extremity pain - DERM Skin Color: Normal Skin Problems: None Past Medical History - General Information source: Patient - Social History Smoking Status: Former Smoker Chew tobacco use (# tins/day): No Frequency of alcohol use: None Drug Abuse: None Occupation: None Lives with: Family Family History: Arthritis, CAD, CVA, DM, Hyperlipidemia, Hypertension, Malignancy Patient has suicidal ideation: No Patient has homicidal ideation: No - Past Medical History Cardiac Medical History: Reports: Hx Atrial Fibrillation, Hx Hypercholesterolemia, Hx Hypertension Pulmonary Medical History: Reports: Hx Asthma Renal/ Medical History: Denies: Hx Peritoneal Dialysis Musculoskeltal Medical History: Reports Hx Arthritis, Reports Hx Musculoskeletal Deformity, Reports Hx Musculoskeletal Trauma Psychiatric Medical History: Reports: Hx Anxiety Traumatic Medical History: Reports: Hx Fractures, Hx Traumatic Brain Injury Past Surgical History: Reports: Hx Oral Surgery, Hx Orthopedic Surgery - left knee, Hx Tubal Ligation - Immunizations Hx Diphtheria, Pertussis, Tetanus Vaccination: Yes Vertical Provider Document - CONSTITUTIONAL Agree With Documented VS: Yes Exam Limitations: No Limitations General Appearance: WD/WN, No Apparent Distress - INFECTION CONTROL TRAVEL OUTSIDE OF THE [place] IN LAST 30 DAYS: No - HEENT HEENT: Atraumatic, Normal ENT Exam, Normocephalic - NECK Neck: Supple. negative: Lymphadenopathy-Left, Lymphadenopathy-Right Notes: No meningismus, bilateral trapezius and paraspinal cervical muscle tenderness with spasm - RESPIRATORY Respiratory: Breath Sounds Normal, No Respiratory Distress - CARDIOVASCULAR Cardiovascular: Regular Rate, Regular Rhythm, No Murmur - BACK Back: Abnormal Inspection - Bilateral trapezius muscle spasm. negative: CVA Tenderness-Right, CVA Tenderness-Left - MUSCULOSKELETAL/EXTREMETIES Musculoskeletal/Extremeties: BHAVIK SIM - NEURO Level of Consciousness: Awake, Alert, Appropriate Motor/Sensory: No Motor Deficit Notes: Cranial nerves II through XII grossly intact - DERM Integumentary: Warm, Dry, No Rash Course - Re-evaluation Re-evalutation: 03/03/18 20:08 Patient denies any headache symptoms at this time. Patient nontoxic in appearance. Patient denies any nausea or vomiting. The patient presents with headache without signs of EXT [employer] DEVELOPER bleed, stroke, infection, or other serious etiology. The patient is neurologically intact. Given the extremely low risk of these diagnoses further testing and evaluation for these possibilities does not appear to be indicated at this time. The patient has been instructed to return if the symptoms worsen or change in any way. Patient will be given a refill of her blood pressure medication as well as a muscle relaxant. Suspect that patient's symptoms may have been related to a tension headache in addition to being out of her usual blood pressure medications. Patient denies any chest pain, abdominal pain or back pain. Patient is agreeable with discharge plan of care at this time Consulted with Dr. Elizabeth who is agreeable with this plan of care. - Vital Signs Vital signs: Temp Pulse Resp BP Pulse Ox 97.9 F 98 16 177/75 H 95 03/03/18 18:01 03/03/18 18:01 03/03/18 18:01 03/03/18 18:01 03/03/18 18:01 Discharge - Discharge Clinical Impression: Trapezius muscle spasm, Hx of essential hypertension Headache Qualifiers: Headache type: unspecified Headache chronicity pattern: unspecified pattern Intractability: not intractable Qualified Code(s): R51 - Headache Condition: Stable Disposition: HOME, SELF-CARE Instructions: Headache ([facility]), Muscle Relaxers ([facility]), Muscle Strain ([facility]) Additional Instructions: Return immediately for any new or worsening symptoms Followup with your primary care provider, call tomorrow to make a followup appointment Be sure to take your antibiotics after you have food on your stomach to prevent nausea Prescriptions: Cyclobenzaprine HCl [Flexeril 10 Mg Tablet] 10 mg PO TID #15 tablet Lisinopril/Hydrochlorothiazide [Lisinopril-Hctz 20-25 mg Tab] 1 each PO DAILY # 30 tablet Referrals: ESTRELLITA KRAUS DO [NO LOCAL MD] - 03/05/18
[2018-03-03 20:27] VITALS: BP 164/82
== END 2018-03-03 20:25 | disposition home or self-care (01) ==
LOC: ER 17:56
DX: R51 Headache (principal); M62.838 Other muscle spasm; I10 Essential (primary) hypertension; E78.00 Pure hypercholesterolemia, unspecified; I48.91 Unspecified atrial fibrillation; Z87.820 Personal history of traumatic brain injury; Z98.51 Tubal ligation status
CPT/HCPCS: 99283; J3490 ×2

== ENCOUNTER 2018-03-29 09:06 | Emergency (ER) | payer MEDICAID ==
[2018-03-29 09:12] VITALS: BP 169/82
--- NOTE | 2018-03-29 09:35 | ER Document Report ---
ED Hand/Wrist Injury - General Chief Complaint: Hand Pain Stated Complaint: FINGER PAIN Time Seen by Provider: 03/29/18 09:16 Mode of Arrival: Ambulatory Information source: Patient TRAVEL OUTSIDE OF THE [place] IN LAST 30 DAYS: No - HPI Patient complains to provider of: right middle finger pain Notes: The patient is here with complaints of right middle finger pain. She states that 2 months ago she had a splinter in the tip of her right middle finger which was removed. She subsequently developed a paronychia and was seen for this last month and had the paronychia drained was placed on antibiotics. States that she still has some pain to the end of the finger. No drainage. No fever. No numbness, tingling, weakness. No nausea, vomiting, diarrhea. No chest pain or shortness of breath. She denies any other complaints. Pain is worse with touching the area better with rest. - Related Data Allergies/Adverse Reactions: No Known Allergies Allergy (Verified 02/20/18 07:46) Past Medical History - Social History Smoking Status: Unknown if Ever Smoked Family History: Arthritis, CAD, CVA, DM, Hyperlipidemia, Hypertension, Malignancy - Past Medical History Cardiac Medical History: Reports: Hx Atrial Fibrillation, Hx Hypercholesterolemia, Hx Hypertension Pulmonary Medical History: Reports: Hx Asthma Renal/ Medical History: Denies: Hx Peritoneal Dialysis Musculoskeltal Medical History: Reports Hx Arthritis, Reports Hx Musculoskeletal Deformity, Reports Hx Musculoskeletal Trauma Psychiatric Medical History: Reports: Hx Anxiety Traumatic Medical History: Reports: Hx Fractures, Hx Traumatic Brain Injury Past Surgical History: Reports: Hx Oral Surgery, Hx Orthopedic Surgery - left knee, Hx Tubal Ligation - Immunizations Hx Diphtheria, Pertussis, Tetanus Vaccination: Yes Review of Systems - Review of Systems -: Yes All other systems reviewed and negative Physical Exam - Vital signs Vitals: Temp Pulse Resp BP Pulse Ox 98.5 F 59 L 16 169/82 H 96 03/29/18 09:11 03/29/18 09:11 03/29/18 09:11 03/29/18 09:11 03/29/18 09:11 - Notes Notes: GENERAL: alert, cooperative, nontoxic, no distress. HEAD: normocephalic, atraumatic EYES: conjunctiva pink without discharge, no external redness or swelling. EARS: no external swelling, no external redness NOSE: atraumatic, no external swelling MOUTH/THROAT: mucous membranes moist and pink NECK: soft, supple, full range of motion, no meningismus. CHEST: no distress, lungs clear and equal throughout. No wheezing, rales, rhonchi. CARDIAC: regular rate and rhythm, no murmur, normal capillary refill, normal pulses. BACK: full range of motion, no CVA tenderness. EXTREMITIES: full range of motion of all extremities. No redness, no swelling. Mild tenderness to palpation of the right middle fingertip around the nail. There is no paronychia or drainable abscess noted. The pad of the finger is soft and nontender. No felon. Full flexion and extension of the finger. There is no redness swelling of the finger or hand. Normal cap refill and sensation. No visualized foreign body. NEURO: alert and oriented 3, no focal deficits, full range of motion of all extremities. PYSCH: appropriate mood, affect. Patient is cooperative. SKIN: pink, warm, dry, no rash. Course - Re-evaluation Re-evalutation: 03/29/18 10:56 Patient is nontoxic appearing with stable vitals. She was complaints of right middle finger pain. She had a splinter removed from that finger a few months ago and had a paronychia drained 1 month ago. She continues to have some pain. There is some mild swelling no paronychia or felon identified at this time. I will place the patient on Keflex and write her a prescription for Ultram and have her follow-up with Dr. Irene due to her continued pain. X-rays today show no foreign bodies or signs of osteomyelitis. She has no cellulitis. Her vitals are stable. She can be discharged home. She was instructed to continue to soak her finger in warm soapy water. Follow-up sooner for worsening pain, fever, redness, drainage, any further concerns. The patient is noted to have elevated blood pressure during today's emergency department visit. The patient was informed of this finding. The patient was instructed that this may be related to pre-hypertension and requires further evaluation with a primary care provider. The patient has no hypertensive symptoms at this time. The patient's emergency department workup and current diagnosis were explained to the patient and or family. Follow-up instructions were provided. Medications if prescribed were discussed. Instructions for when to return to the emergency department including specific worrisome symptoms were discussed with the patient and/or family. - Vital Signs Vital signs: Temp Pulse Resp BP Pulse Ox 98.5 F 59 L 16 169/82 H 96 03/29/18 09:11 03/29/18 09:11 03/29/18 09:11 03/29/18 09:11 03/29/18 09:11 - Diagnostic Test Radiology reviewed: Image reviewed, Reports reviewed - Negative x-ray of the hand Discharge - Discharge Clinical Impression: Finger pain, right Condition: Stable Disposition: HOME, SELF-CARE Instructions: Emy ([facility]) Additional Instructions: Take medication as prescribed. Soak your finger in warm soapy water. Follow- up with orthopedics at the next available appointment. Follow-up sooner for worsening pain, fever, redness, swelling, drainage, any further concerns. Your blood pressure was elevated during today's visit. Have this rechecked with your doctor. The medication you were prescribed today may cause drowsiness. Do not drive or operate heavy machinery while taking this medication. Prescriptions: Tramadol HCl [Ultram 50 mg Tablet] 50 mg PO Q6HP PRN #12 tablet PRN Reason: Cephalexin Monohydrate [Keflex 500 mg Capsule] 500 mg PO Q6H 5 Days capsule Forms: Elevated Blood Pressure, Smoking Cessation Education Referrals: DADA IRENE DO [ACTIVE STAFF] - Follow up as needed
--- NOTE | 2018-03-29 10:49 | RADIOLOGY REPORT (SQ) ---
EXAM DESCRIPTION: FINGER RIGHT COMPLETED DATE/TIME: 03/29/2018 10:34 am REASON FOR STUDY: finger infection COMPARISON: None. NUMBER OF VIEWS: Three views. TECHNIQUE: AP, lateral, and oblique images acquired of the right third finger. LIMITATIONS: None. FINDINGS: MINERALIZATION: Osteopenia. BONES: No acute fracture or dislocation. No worrisome bone lesions. SOFT TISSUES: No soft tissue swelling. No foreign body. OTHER: No other significant finding. IMPRESSION: NO RADIOGRAPHIC EVIDENCE OF ACUTE INJURY. COMMENT: SITE OF TRAUMA/COMPLAINT MARKED/STAMP COMPLETED: YES. TECHNICAL DOCUMENTATION: JOB ID: [id number] [employer]- All Rights Reserved Reading location - IP/workstation name: [email or web address]
== END 2018-03-29 10:57 | disposition home or self-care (01) ==
LOC: ER 09:06
DX: M79.644 Pain in right finger(s) (principal); I10 Essential (primary) hypertension; I48.91 Unspecified atrial fibrillation; E78.00 Pure hypercholesterolemia, unspecified; Z98.51 Tubal ligation status
CPT/HCPCS: 99283

== ENCOUNTER → 2018-05-11 | Outpatient (CLI) | payer MEDICAID ==
--- NOTE | 2018-05-11 11:13 | RADIOLOGY REPORT (SQ) ---
EXAM DESCRIPTION: HAND RIGHT 3 VIEWS COMPLETED DATE/TIME: 05/11/2018 10:49 am REASON FOR STUDY: ARTHROPATHY, UNSPEC (M12.9), PAIN IN UNSPEC HAND (M79.643) M12.9 ARTHROPATHY, UNS PECIFIED M79.643 PAIN IN UNSPECIFIED HAND COMPARISON: None. EXAM PARAMETERS: NUMBER OF VIEWS: Three views. TECHNIQUE: AP, lateral and oblique radiographic images acquired of the right hand. LIMITATIONS: None. FINDINGS: MINERALIZATION: Normal. BONES: No acute fracture or dislocation. No worrisome bone lesions. JOINTS: No effusions. SOFT TISSUES: No soft tissue swelling. No foreign body. OTHER: No other significant finding. IMPRESSION: NEGATIVE STUDY OF THE RIGHT HAND. NO RADIOGRAPHIC EVIDENCE OF ACUTE INJURY. TECHNICAL DOCUMENTATION: JOB ID: [id number] [employer]- All Rights Reserved Reading location - IP/workstation name: [email or web address]
== END ==
LOC: RAD 10:33
PROVIDERS: ATTEND Nurse Practitioner Family
DX: M12.9 Arthropathy, unspecified (principal); M79.641 Pain in right hand

== ENCOUNTER 2018-06-24 08:49 | Emergency (ER) | payer MEDICAID ==
--- NOTE | 2018-06-24 09:24 | ER Document Report ---
ED Medical Screen (RME) - General Mode of Arrival: Ambulatory Information source: Patient TRAVEL OUTSIDE OF THE [place] IN LAST 30 DAYS: No - General Chief Complaint: Hand Pain Stated Complaint: RIGHT HAND PAIN Time Seen by Provider: 06/24/18 09:17 Notes: Patient is a 62 year old female presenting to the emergency department complaining of right hand pain worsening today. Patient states she previously had a splinter removed a couple of months ago from her right 3rd digit and states her finger has not been the same since. She states she has had intermittent swelling and pain although the pain has worsened this morning. Patient denies any drainage or fevers. GENERAL: Alert, interacts well. No acute distress. HEAD: Normocephalic, Atraumatic. NECK: Full range of motion. Supple. Trachea midline. LUNGS: . No respiratory distress. EXTREMITIES: Moves all four extremities spontaneously. Right 3rd digit is mildly swollen from PIP joint to tip of finger, tender to palpation, difficulty extending and flexing. Thickening of skin at tip of finger with nail abnormalities. No active discharge. PSYCH: Normal affect, normal mood. I have greeted and performed a rapid initial assessment of this patient. A comprehensive ED assessment and evaluation of the patient, analysis of test results and completion of the medical decision making process will be conducted by additional ED providers. (JOSE ARMANDO RUIZ) - Related Data Allergies/Adverse Reactions: No Known Allergies Allergy (Verified 06/24/18 08:50) Past Medical History - Social History Chew tobacco use (# tins/day): No Frequency of alcohol use: None Drug Abuse: None - Past Medical History Cardiac Medical History: Reports: Hx Atrial Fibrillation, Hx Hypercholesterolemia, Hx Hypertension Pulmonary Medical History: Reports: Hx Asthma Renal/ Medical History: Denies: Hx Peritoneal Dialysis Musculoskeltal Medical History: Reports Hx Arthritis, Reports Hx Musculoskeletal Deformity, Reports Hx Musculoskeletal Trauma Psychiatric Medical History: Reports: Hx Anxiety Traumatic Medical History: Reports: Hx Fractures, Hx Traumatic Brain Injury Past Surgical History: Reports: Hx Oral Surgery, Hx Orthopedic Surgery - left knee, Hx Tubal Ligation - Immunizations Hx Diphtheria, Pertussis, Tetanus Vaccination: Yes - Vital signs Vitals: Temp Pulse Resp BP Pulse Ox 98.2 F 73 18 132/62 H 98 06/24/18 08:53 06/24/18 08:53 06/24/18 08:53 06/24/18 08:53 06/24/18 08:53 - Vital Signs Vital signs: Temp Pulse Resp BP Pulse Ox 98.2 F 73 18 132/62 H 98 06/24/18 08:53 06/24/18 08:53 06/24/18 08:53 06/24/18 08:53 06/24/18 08:53
[2018-06-24] MEDS ORDERED: LIDOCAINE 1% INJ (10 MG/ML) 10 ML MDV INJ ONE (09:55)
--- NOTE | 2018-06-24 10:00 | RADIOLOGY REPORT (SQ) ---
EXAM DESCRIPTION: FINGER RIGHT COMPLETED DATE/TIME: 06/24/2018 9:33 am REASON FOR STUDY: right third finger swelling, possible FB COMPARISON: None. NUMBER OF VIEWS: Three views. TECHNIQUE: AP, lateral, and oblique images acquired of the right 3rd finger LIMITATIONS: None. FINDINGS: MINERALIZATION: Normal. BONES: There is osteophytic change of the right 1st, 2nd, 3rd ,and 5th DIP joints. . SOFT TISSUES: Soft tissue deformity over the distal tuft of the right 3rd distal phalanx. OTHER: No radiopaque foreign body identified. IMPRESSION: Minimal degenerative arthritis of the DIP joints. Soft tissue deformity. Otherwise nor mal right 3rd finger. TECHNICAL DOCUMENTATION: JOB ID: [id number] [employer]- All Rights Reserved Reading location - IP/workstation name: [email or web address]
[2018-06-24] MEDS ORDERED: LIDOCAINE 1% INJ-PF (10 MG/ML) 30 ML SDV ONE (10:13)
--- NOTE | 2018-06-24 10:33 | ER Document Report ---
ED Hand/Wrist Injury - General Chief Complaint: Hand Pain Stated Complaint: RIGHT HAND PAIN Time Seen by Provider: 06/24/18 09:17 Mode of Arrival: Ambulatory Notes: Patient is a 62-year-old female that presents today for some right middle finger pain and swelling. Reviewing the patient's chart it appears that the patient in November of this year supposedly had a splinter removed from the distal tip of this finger. She then presented February 20 with some swelling and had a paronychia drained. She then presented March 29 with swelling and was placed on antibiotics with no I&D performed. She was supposed to follow-up with orthopedics but failed to. Patient states that the patient's pain has continued. She states it is only to this finger. She denies any fevers or vomiting. TRAVEL OUTSIDE OF THE [place] IN LAST 30 DAYS: No - HPI Injury to: Middle finger Onset: Other - See above Where: Home Timing: Constant Quality of pain: Achy Severity: Mild Pain Level: 1 Context: Other - See above - Related Data Allergies/Adverse Reactions: No Known Allergies Allergy (Verified 06/24/18 08:50) Past Medical History - General Information source: Patient - Social History Smoking Status: Former Smoker Cigarette use (# per day): No Chew tobacco use (# tins/day): No Smoking Education Provided: No Frequency of alcohol use: None Drug Abuse: None Family History: Arthritis, CAD, CVA, DM, Hyperlipidemia, Hypertension, Malignancy Patient has suicidal ideation: No Patient has homicidal ideation: No - Past Medical History Cardiac Medical History: Reports: Hx Atrial Fibrillation, Hx Hypercholesterolemia, Hx Hypertension Pulmonary Medical History: Reports: Hx Asthma Renal/ Medical History: Denies: Hx Peritoneal Dialysis Musculoskeletal Medical History: Reports Hx Arthritis, Reports Hx Musculoskeletal Deformity, Reports Hx Musculoskeletal Trauma Psychiatric Medical History: Reports: Hx Anxiety Traumatic Medical History: Reports: Hx Fractures, Hx Traumatic Brain Injury Past Surgical History: Reports: Hx Oral Surgery, Hx Orthopedic Surgery - left knee, Hx Tubal Ligation - Immunizations Hx Diphtheria, Pertussis, Tetanus Vaccination: Yes Physical Exam - Vital signs Vitals: Temp Pulse Resp BP Pulse Ox 98.2 F 73 18 132/62 H 98 06/24/18 08:53 06/24/18 08:53 06/24/18 08:53 06/24/18 08:53 06/24/18 08:53 Notes: Reviewed vital signs and nursing note as charted by RN. CONSTITUTIONAL: Alert and oriented and responds appropriately to questions. Well -appearing; well-nourished EXT: Patient has a little swelling to the right middle finger with no obvious erythema. There is a little bit of tenderness to the distal tip with minimal fluctuance Course - Re-evaluation Re-evalutation: 06/24/18 10:32 Given the history and physical examination I will perform a digital block and attempt to perform a small I&D of the distal tip single lesion. I have explained to the patient repeatedly the importance of following up with orthopedics, as if there is a retained foreign wooden body, it is very difficult to see on imaging and may need further exploration. She states she understands this information. 06/24/18 11:26 Incision and drainage was performed. I will start the patient on doxycycline. Given my concern about the possibility of a remained splinterlike object causing these recurrent distal tip finger infections, I have called and spoken directly to Dr. Irene. I have explained that I believe that the patient may not require more extensive exploration, possibly in the operating room with nail removal. States he will see the patient in the clinic. Patient will be discharged home with his information with strict return precautions and started on doxycycline. - Vital Signs Vital signs: Temp Pulse Resp BP Pulse Ox 98.2 F 73 18 132/62 H 98 06/24/18 08:53 06/24/18 08:53 06/24/18 08:53 06/24/18 08:53 06/24/18 08:53 Procedures - Incision and Drainage Right Finger Type: Simple Anesthetic type: 1% Lidocaine mL's of anesthetic: 5 Blade size: 11 I&D procedure: Chlorprep applied Incision Method: Incision made by scalpel Notes: 06/24/18 11:26 I did perform a digital block of the finger with good anesthesia uptake Discharge - Discharge Clinical Impression: Abscess of finger of right hand Condition: Good Disposition: HOME, SELF-CARE Additional Instructions: Come back immediately with any increased pain, swelling, redness, fever, discharge, or any other acute problems. Please make sure you absolutely take the antibiotics as we have prescribed and please make sure that you call promptly to see the orthopedic surgeon as we have helped expedite for you. Prescriptions: Doxycycline Hyclate 100 mg PO BID #20 capsule Referrals: DADA IRENE DO [ACTIVE STAFF] - Follow up as needed
[2018-06-24] MEDS ORDERED: DOXYCYCLINE HYCLATE 100 MG TABLET PO ONE (11:23)
[2018-06-24 12:08] VITALS: BP 137/60
== END 2018-06-24 12:08 | disposition home or self-care (01) ==
LOC: ER 08:49
DX: L02.511 Cutaneous abscess of right hand (principal); M79.644 Pain in right finger(s); I10 Essential (primary) hypertension; J45.909 Unspecified asthma, uncomplicated; Z87.891 Personal history of nicotine dependence
CPT/HCPCS: 26010; 99283; 73140; J3490 ×3

== ENCOUNTER 2018-08-26 10:10 | Emergency (ER) | payer MEDICAID ==
[2018-08-26 10:16] VITALS: BP 140/68
--- NOTE | 2018-08-26 10:36 | ER Document Report ---
HPI - HPI Patient complains to provider of: Blood pressure refill Onset: Last week Onset/Duration: Gradual Pain Level: Denies Context: Patient presents complaining of headache off and on that started today. Patient states she did take Tylenol at home that helped her headache pain. Patient states that her blood pressure medication and her anxiety medication were in her purse and got wet after a soda spilled in her purse. Patient is requesting a refill of her medications. Patient denies any fever nausea or vomiting. Patient denies any neck pain. Associated Symptoms: Headache. denies: Nonproductive cough, Fever Exacerbated by: Denies Relieved by: Denies Similar symptoms previously: Yes Recently seen / treated by doctor: No - ROS ROS below otherwise negative: Yes Systems Reviewed and Negative: Yes All other systems reviewed and negative - CONSTITUTIONAL Constitutional: DENIES: Fever, Chills - EENT EENT: DENIES: Sore Throat - NEURO Neurology: REPORTS: Headache. DENIES: Vision blurred, Dizzinesss / Vertigo - CARDIOVASCULAR Cardiovascular: DENIES: Chest pain - RESPIRATORY Respiratory: DENIES: Trouble Breathing, Coughing - GASTROINTESTINAL Gastrointestinal: DENIES: Nausea, Patient vomiting - REPRODUCTIVE Reproductive: DENIES: : - MUSCULOSKELETAL Musculoskeletal: DENIES: Extremity pain, Back Pain, Neck Pain - DERM Skin Color: Normal Skin Problems: None Past Medical History - General Information source: Patient - Social History Smoking Status: Current Every Day Smoker Frequency of alcohol use: None Drug Abuse: None Occupation: None Lives with: Family Family History: Arthritis, CAD, CVA, DM, Hyperlipidemia, Hypertension, Malignancy Patient has suicidal ideation: No Patient has homicidal ideation: No - Past Medical History Cardiac Medical History: Reports: Hx Atrial Fibrillation, Hx Hypercholesterolemia, Hx Hypertension Pulmonary Medical History: Reports: Hx Asthma Renal/ Medical History: Denies: Hx Peritoneal Dialysis Musculoskeletal Medical History: Reports Hx Arthritis, Reports Hx Musculoskeletal Deformity, Reports Hx Musculoskeletal Trauma Psychiatric Medical History: Reports: Hx Anxiety Traumatic Medical History: Reports: Hx Fractures, Hx Traumatic Brain Injury Past Surgical History: Reports: Hx Oral Surgery, Hx Orthopedic Surgery - left knee, Hx Tubal Ligation - Immunizations Hx Diphtheria, Pertussis, Tetanus Vaccination: Yes Vertical Provider Document - CONSTITUTIONAL Agree With Documented VS: Yes Exam Limitations: No Limitations General Appearance: WD/WN, No Apparent Distress - INFECTION CONTROL TRAVEL OUTSIDE OF THE [place] IN LAST 30 DAYS: No - HEENT HEENT: Atraumatic, Normal ENT Exam, Normocephalic - NECK Neck: Normal Inspection, Supple. negative: Lymphadenopathy-Left, Lymphadenopathy-Right Notes: No meningismus - RESPIRATORY Respiratory: Breath Sounds Normal, No Respiratory Distress - CARDIOVASCULAR Cardiovascular: Regular Rate, Regular Rhythm, No Murmur - BACK Back: Normal Inspection. negative: CVA Tenderness-Right, CVA Tenderness-Left - MUSCULOSKELETAL/EXTREMETIES Musculoskeletal/Extremeties: BHAVIK SIM - NEURO Level of Consciousness: Awake, Alert, Appropriate Motor/Sensory: No Motor Deficit, No Sensory Deficit - DERM Integumentary: Warm, Dry, No Rash Course - Re-evaluation Re-evalutation: 08/26/18 10:32 Patient states that headache pain is not very severe at this time and has been off and on today. Patient is requesting refills of her Prozac and blood pressure medicine as they were lost due to spilling soda in her purse. The patient presents with headache without signs of HEALTH SAFETY COORDINATOR bleed, stroke, infection, or other serious etiology. The patient is neurologically intact. Given the extremely low risk of these diagnoses further testing and evaluation for these possibilities does not appear to be indicated at this time. The patient has been instructed to return if the symptoms worsen or change in any way. - Vital Signs Vital signs: Temp Pulse Resp BP Pulse Ox 98.5 F 64 16 140/68 H 99 08/26/18 10:15 08/26/18 10:15 08/26/18 10:15 08/26/18 10:15 08/26/18 10:15 Discharge - Discharge Clinical Impression: Medication refill Headache Qualifiers: Headache type: unspecified Headache chronicity pattern: unspecified pattern Intractability: not intractable Qualified Code(s): R51 - Headache Condition: Stable Disposition: HOME, SELF-CARE Instructions: Acetaminophen, Headache ([facility]) Additional Instructions: Return immediately for any new or worsening symptoms Followup with your primary care provider, call tomorrow to make a followup appointment Follow-up or call your doctor tomorrow and explained to them the situation with your medications so that you can obtain additional refills for your medicine. Prescriptions: Fluoxetine HCl [Prozac 20 mg Capsule] 20 mg PO DAILY #7 capsule Lisinopril/Hydrochlorothiazide [Lisinopril-Hctz 20-25 mg Tab] 1 each PO DAILY # 7 tablet Referrals: ESTRELLITA KRAUS DO [NO LOCAL MD] - Follow up tomorrow
== END 2018-08-26 10:47 | disposition home or self-care (01) ==
LOC: ER 10:10
DX: I10 Essential (primary) hypertension (principal); R51 Headache; F17.200 Nicotine dependence, unspecified, uncomplicated; I48.91 Unspecified atrial fibrillation; E78.00 Pure hypercholesterolemia, unspecified; Z98.51 Tubal ligation status
CPT/HCPCS: 99281

== ENCOUNTER 2018-11-30 10:51 | Emergency (ER) | payer MEDICAID ==
--- NOTE | 2018-11-30 12:26 | ER Document Report ---
HPI - HPI Patient complains to provider of: cough Time Seen by Provider: 11/30/18 12:15 Onset: Last week Onset/Duration: Persistent Quality of pain: Achy Pain Level: 3 Context: Patient presents with cough, sore throat congestion for the past week. Patient is here with a family member with similar symptoms. Patient denies any history of asthma or COPD although does continue to smoke cigarettes daily. Associated Symptoms: Nonproductive cough, Rhinnorhea, Sinus pain/drainage, Sore throat. denies: Chest pain, Fever Exacerbated by: Denies Relieved by: Denies Similar symptoms previously: No Recently seen / treated by doctor: No - ROS ROS below otherwise negative: Yes Systems Reviewed and Negative: Yes All other systems reviewed and negative - CONSTITUTIONAL Constitutional: DENIES: Fever, Chills - EENT EENT: REPORTS: Sore Throat, Nasal Drainage-Clear, Congestion - NEURO Neurology: DENIES: Headache - CARDIOVASCULAR Cardiovascular: DENIES: Chest pain - RESPIRATORY Respiratory: REPORTS: Coughing. DENIES: Trouble Breathing - GASTROINTESTINAL Gastrointestinal: DENIES: Nausea, Patient vomiting - REPRODUCTIVE Reproductive: DENIES: : - MUSCULOSKELETAL Musculoskeletal: DENIES: Extremity pain, Back Pain, Swelling - DERM Skin Color: Normal Skin Problems: None Past Medical History - General Information source: Patient - Social History Smoking Status: Current Every Day Smoker Frequency of alcohol use: None Drug Abuse: None Occupation: none Lives with: Family Family History: Arthritis, CAD, CVA, DM, Hyperlipidemia, Hypertension, Malignancy - Past Medical History Cardiac Medical History: Reports: Hx Atrial Fibrillation, Hx Hypercholesterolemia, Hx Hypertension Pulmonary Medical History: Reports: Hx Asthma Renal/ Medical History: Denies: Hx Peritoneal Dialysis Musculoskeletal Medical History: Reports Hx Arthritis, Reports Hx Musculoskele jhony Deformity, Reports Hx Musculoskeletal Trauma Psychiatric Medical History: Reports: Hx Anxiety Traumatic Medical History: Reports: Hx Fractures, Hx Traumatic Brain Injury Past Surgical History: Reports: Hx Oral Surgery, Hx Orthopedic Surgery - left knee, Hx Tubal Ligation - Immunizations Hx Diphtheria, Pertussis, Tetanus Vaccination: Yes Vertical Provider Document - CONSTITUTIONAL Agree With Documented VS: Yes Exam Limitations: No Limitations General Appearance: WD/WN, No Apparent Distress - INFECTION CONTROL TRAVEL OUTSIDE OF THE [place] IN LAST 30 DAYS: No - HEENT HEENT: Atraumatic, Normocephalic, Pharyngeal Tenderness, Pharyngeal Erythema. negative: Pharyngeal Exudate, Tympanic Membrane Red, Tympanic Membrane Bulging - NECK Neck: Normal Inspection, Supple. negative: Lymphadenopathy-Left, Lymphadenopathy-Right - RESPIRATORY Respiratory: Breath Sounds Normal, No Respiratory Distress, Chest Non-Tender - CARDIOVASCULAR Cardiovascular: Regular Rate, Regular Rhythm, No Murmur - GI/ABDOMEN Gastrointestinal: Abdomen Soft - BACK Back: Normal Inspection - MUSCULOSKELETAL/EXTREMETIES Musculoskeletal/Extremeties: MAEW - NEURO Level of Consciousness: Awake, Alert, Appropriate Motor/Sensory: No Motor Deficit - DERM Integumentary: Warm, Dry, No Rash Course - Re-evaluation Re-evalutation: 11/30/18 Pt resp unlabored pt nontoxic in appearance. Discussed with patient findings on x-ray worrisome for COPD. Patient encouraged smoking. Will treat with inhalers and steroids at this time. No concern for pneumonia. Patient nontoxic in appearance. - Vital Signs Vital signs: Temp Pulse Resp BP Pulse Ox 98.3 F 60 16 139/61 H 97 11/30/18 10:55 11/30/18 10:55 11/30/18 10:55 11/30/18 10:55 11/30/18 10:55 - Laboratory Laboratory results interpreted by me: 11/30/18 13:30 Labs- Entire Visit 11/30/18 12:34 Group A Strep Rapid NEGATIVE - Diagnostic Test Radiology reviewed: Reports reviewed Discharge - Discharge Clinical Impression: Sore throat COPD (chronic obstructive pulmonary disease) Qualifiers: COPD type: unspecified COPD Qualified Code(s): J44.9 - Chronic obstructive pulmonary disease, unspecified Condition: Stable Disposition: HOME, SELF-CARE Instructions: Chronic Obstructive Lung Disease ([facility]), Inhaled Bronchodilators ([facility]), Steroid Medication Additional Instructions: Return immediately for any new or worsening symptoms Followup with your primary care provider, call tomorrow to make a followup appointment Throat culture is pending, will call if you need any different treatment Prescriptions: Albuterol Sulfate [Proair Hfa Inhalation Aerosol 8.5 gm Mdi] 2 puff IH Q4 PRN #1 mdi PRN Reason: Ipratropium/Albuterol Sulfate [Combivent Respimat 4 gm Mdi] 1 puff IH Q6 #1 aer.w.adap Prednisone [Deltasone 20 mg Tablet] 2 tab PO DAILY 5 Days tablet Forms: Smoking Cessation Education Referrals: ARTURO RICHARDSON DO [NO LOCAL MD] - Follow up as needed
--- NOTE | 2018-11-30 13:18 | RADIOLOGY REPORT (SQ) ---
EXAM DESCRIPTION: CHEST 2 VIEWS COMPLETED DATE/TIME: 11/30/2018 12:58 pm REASON FOR STUDY: cough COMPARISON: 06/19/2015. NUMBER OF VIEWS: Two view. TECHNIQUE: Frontal and lateral radiographic views of the chest acquired. LIMITATIONS: None. FINDINGS: LUNGS AND PLEURA: No opacities, masses or pneumothorax. No pleural effusion. Attenuated bl ood vessels and flattened chandrakant-diaphragms. MEDIASTINUM AND HILAR STRUCTURES: No masses. No contour abnormalities. HEART AND VASCULAR STRUCTURES: Heart normal in size and contour. No evidence for failure. BONES: No acute findings. HARDWARE: None in the chest. OTHER: No other significant finding. IMPRESSION: COPD. NO ACUTE RADIOGRAPHIC FINDING IN THE CHEST. TECHNICAL DOCUMENTATION: JOB ID: [id number] [employer]- All Rights Reserved Reading location - IP/workstation name: [email or web address]
[2018-11-30 14:04] VITALS: BP 132/63
== END 2018-11-30 14:21 | disposition home or self-care (01) ==
LOC: ER 10:51
DX: J44.9 Chronic obstructive pulmonary disease, unspecified (principal); R05 Cough; J02.9 Acute pharyngitis, unspecified; F17.210 Nicotine dependence, cigarettes, uncomplicated; J34.89 Other specified disorders of nose and nasal sinuses; I10 Essential (primary) hypertension
CPT/HCPCS: 71046; 87070; 87880; 99283

== ENCOUNTER 2019-03-02 18:57 | Emergency (ER) | payer MEDICAID ==
[2019-03-02] MEDS ORDERED: LISINOPRIL 10 MG TABLET PO ONE (19:36)
[2019-03-02] MEDS ORDERED: HYDROCHLOROTHIAZIDE 25 MG TABLET PO ONE (19:36)
[2019-03-02 19:42] VITALS: BP 167/71
--- NOTE | 2019-03-02 20:01 | ER Document Report ---
HPI - HPI Time Seen by Provider: 03/02/19 19:22 Pain Level: 2 Notes: Patient is a 63-year-old female who presents to the emergency department with concerns of high blood pressure. Patient states at home her blood pressure was 200/100. Patient states she has been out of her medications for 2 weeks. States that she discussed them refilled and took a dose this morning. Patient takes lisinopril/HCTZ 20/. Patient denies any chest pain, shortness of breath, headache or nausea. Patient is accompanied by several family members. - REPRODUCTIVE Reproductive: DENIES: : Past Medical History - General Information source: Patient - Social History Smoking Status: Former Smoker Family History: Arthritis, CAD, CVA, DM, Hyperlipidemia, Hypertension, Malignancy Patient has suicidal ideation: No Patient has homicidal ideation: No - Past Medical History Cardiac Medical History: Reports: Hx Atrial Fibrillation, Hx Hypercholesterolemia, Hx Hypertension Pulmonary Medical History: Reports: Hx Asthma Renal/ Medical History: Denies: Hx Peritoneal Dialysis Musculoskeletal Medical History: Reports Hx Arthritis, Reports Hx Muscul oskeletal Deformity, Reports Hx Musculoskeletal Trauma Psychiatric Medical History: Reports: Hx Anxiety Traumatic Medical History: Reports: Hx Fractures, Hx Traumatic Brain Injury Past Surgical History: Reports: Hx Oral Surgery, Hx Orthopedic Surgery - left knee, Hx Tubal Ligation - Immunizations Hx Diphtheria, Pertussis, Tetanus Vaccination: Yes Vertical Provider Document - CONSTITUTIONAL Notes: PHYSICAL EXAMINATION: GENERAL: Well-appearing, well-nourished and in no acute distress. HEAD: Atraumatic, normocephalic. EYES: Pupils equal round and reactive to light, extraocular movements intact, conjunctiva are normal. ENT: Nares patent, oropharynx clear without exudates. Moist mucous membranes. NECK: Normal range of motion, supple without lymphadenopathy LUNGS: Breath sounds clear to auscultation bilaterally and equal. No wheezes rales or rhonchi. HEART: Regular rate and rhythm without murmurs ABDOMEN: Soft, nontender, nondistended abdomen. No guarding, no rebound. No masses appreciated. Female : deferred Musculoskeletal: Normal range of motion, no pitting or edema. No cyanosis. NEUROLOGICAL: Cranial nerves grossly intact. Normal speech, normal gait. Normal sensory, motor exams PSYCH: Normal mood, normal affect. SKIN: Warm, Dry, normal turgor, no rashes or lesions noted. - INFECTION CONTROL TRAVEL OUTSIDE OF THE [place] IN LAST 30 DAYS: No Course - Re-evaluation Re-evalutation: Patient is a 51-year-old female presenting with asymptomatic hypertension. Patient states that she had been out of her hypertensive medication for the last few weeks, states that she just had it filled this morning and took 1 dose. Patient called EMS as she stated that her blood pressure was 200/100. At time of arrival patient's blood pressure is 170s over 90s, she denies any symptoms, denies headache, fatigue, shortness of breath or chest pain. Patient will be given additional dose of her medication will be discharged home. Patient is agreeable to this plan. - Vital Signs Vital signs: Temp Pulse Resp BP Pulse Ox 98.0 F 64 18 167/71 H 96 03/02/19 19:41 03/02/19 19:41 03/02/19 19:41 03/02/19 19:41 03/02/19 19:07 Discharge - Discharge Clinical Impression: Hypertension Condition: Stable Disposition: HOME, SELF-CARE Additional Instructions: Please continue to take medications as prescribed. Take your next dose of blood pressure medication tomorrow morning.
== END 2019-03-02 20:06 | disposition home or self-care (01) ==
LOC: ER 18:57
DX: I10 Essential (primary) hypertension (principal); T46.4X6A Underdosing of angiotensin-converting-enzyme inhibitors, initial encounter; T50.2X6A Underdosing of carbonic-anhydrase inhibitors, benzothiadiazides and other diuretics, initial encounter; Z91.128 Patient's intentional underdosing of medication regimen for other reason; Z91.14 Patient's other noncompliance with medication regimen; J45.909 Unspecified asthma, uncomplicated; Z87.891 Personal history of nicotine dependence
CPT/HCPCS: 99283; J3490 ×2

== ENCOUNTER → 2019-07-03 | Outpatient (CLI) | payer MEDICAID ==
--- NOTE | 2019-07-03 13:47 | RADIOLOGY REPORT (SQ) ---
EXAM DESCRIPTION: FOOT RIGHT COMPLETE COMPLETED DATE/TIME: 07/03/2019 11:49 am REASON FOR STUDY: PAIN IN RIGHT FOOT M79.671 PAIN IN RIGHT FOOT COMPARISON: 05/16/2017 NUMBER OF VIEWS: Three views. TECHNIQUE: AP, lateral and oblique radiographic images acquired of the right foot. LIMITATIONS: None. FINDINGS: MINERALIZATION: Normal. BONES: No acute fracture. Metatarsus adductus and hallux varus. Degenerative changes 1st MTP joint. JOINTS: No effusions. SOFT TISSUES: No soft tissue swelling. No foreign body. OTHER: No other significant finding. IMPRESSION: Chronic changes 1st MTP joint. No acute findings. TECHNICAL DOCUMENTATION: JOB ID: [id number] [employer]- All Rights Reserved Reading location - IP/workstation name: [email or web address]
== END ==
LOC: OD 11:31
PROVIDERS: ATTEND Nurse Practitioner Family
DX: M79.671 Pain in right foot (principal)